=== PATIENT | female | born 1990 | race Caucasian/White ===

== ENCOUNTER 2016-08-20 00:30 | Emergency (ER) | payer OTHER ==
[~2016-08-20] VITALS: Ht 170.2 cm; Wt 77.1 kg
[~2016-08-20 00:30] MED LIST: AMOXICILLIN 50500 M1 PO; APAP500 PO; BENADRYL ALLERG25 MG PO; CIPROFLOXACIN500 M1 PO; DERMOPLAST SPRA56 ML; IBUPROFEN 800800 M1 PO; LANOLIN56 GM; NORCO 5-325 TA1 EACH PO; PEPCID40 MG PO; PREDNISONE 20 M20 MG PO; PRENATAL PO; PYRIDIUM200 MG PO; TUCKS1 EAC1 TP; ZOFRAN ODT4 MG PO
[2016-08-20] MEDS ORDERED: PREDNISONE 10 M10 M1 PO (01:44)
[2016-08-20 02:02] VITALS: BP 105/66
== END 2016-08-20 02:02 | disposition home or self-care (01) ==
LOC: ER 00:30
DX: L29.9 Pruritus, unspecified (principal); J45.909 Unspecified asthma, uncomplicated; G43.909 Migraine, unspecified, not intractable, without status migrainosus; Z90.89 Acquired absence of other organs; Z87.891 Personal history of nicotine dependence

== ENCOUNTER 2017-03-19 17:03 | Emergency (ER) | payer OTHER ==
[~2017-03-19] VITALS: Ht 170.2 cm; Wt 70.3 kg
[~2017-03-19 17:03] MED LIST changes: +PREDNISONE 10 M10 M1 PO
[2017-03-19 17:29] LABS: URINE BILIRUBIN NEGATIVE (Negative); URINE BLOOD NEGATIVE (Negative); URINE CLARITY CLEAR; URINE COLOR YELLOW; URINE GLUCOSE-RANDOM* NEGATIVE (Negative); URINE KETONES NEGATIVE (Negative); URINE LEUKOCYTES-REFLEX NEGATIVE (Negative); URINE NITRITE-REFLEX NEGATIVE (Negative); URINE PROTEIN (DIPSTICK) NEGATIVE (Negative); URINE UROBILINOGEN 0.2 E.U./dl (0.2-1.0)
[2017-03-19 17:41] LABS: ABSOLUTE NEUTROPHILS 11.7 thou/uL (1.4-8.2); BASOPHILS 0.5 % (0.0-2.0); EOSINOPHILS 0.7 % (0.0-3.0); HEMATOCRIT 42.2 % (37.0-47.0); LYMPHOCYTES 18.6 % (24.0-44.0); MCHC 33.1 g/dL (28.0-37.0); MCV 90.7 fL (80.0-100.0); MONOCYTES 5.8 % (1.0-8.0); PLATELET COUNT 171 thou/uL (150-400); POLYS 74.4 % (36.0-66.0); RBC 4.66 mil/uL (4.20-5.00); RDW 12.5 % (10.5-14.5); WBC 15.8 thou/uL (4.0-11.0)
[2017-03-19 18:05] LABS: CALCIUM 9.7 mg/dL (8.5-10.1); CREATININE 0.7 mg/dL (0.6-1.0); POTASSIUM 4.3 mmol/L (3.5-5.1)
[2017-03-19 18:11] LABS: ALBUMIN 4.5 g/dL (3.4-5.0); TOTAL BILIRUBIN 0.6 mg/dL (<0.1-1.0); TOTAL PROTEIN 7.9 g/dL (6.4-8.2)
[2017-03-19] MEDS ORDERED: NORCO 5-325 TA1 EACH PO (19:36)
[2017-03-19] MEDS ORDERED: ZOFRAN ODT4 MG PO (19:36)
== END 2017-03-19 20:03 | disposition home or self-care (01) ==
LOC: ER 17:03
PROVIDERS: Emergency Medicine; Physician Assistant
DX: N83.201 Unspecified ovarian cyst, right side (principal); J45.909 Unspecified asthma, uncomplicated; G43.909 Migraine, unspecified, not intractable, without status migrainosus; Z90.89 Acquired absence of other organs; Z87.891 Personal history of nicotine dependence

== ENCOUNTER 2017-04-21 17:55 | Emergency (ER) | payer OTHER ==
[~2017-04-21] VITALS: Ht 170.2 cm; Wt 68.0 kg
[2017-04-21] MEDS ORDERED: AUGMENTIN 875-1 EACH PO (19:17)
== END 2017-04-21 19:37 | disposition home or self-care (01) ==
LOC: ER 17:55
DX: J98.8 Other specified respiratory disorders (principal); J32.0 Chronic maxillary sinusitis; J45.909 Unspecified asthma, uncomplicated; G43.909 Migraine, unspecified, not intractable, without status migrainosus; F17.210 Nicotine dependence, cigarettes, uncomplicated

== ENCOUNTER 2017-10-29 13:00 | Emergency (ER) | payer OTHER ==
[~2017-10-29] VITALS: Ht 170.2 cm; Wt 77.1 kg
[~2017-10-29 13:00] MED LIST changes: +AUGMENTIN 875-1 EACH PO
[2017-10-29] MEDS ORDERED: NAPROSYN500 MG PO (14:45)
[2017-10-29] MEDS ORDERED: NORFLEX100 MG PO (14:45)
[2017-10-29] MEDS ORDERED: HYDROCODONE-AP1 EAC6 PO (14:46)
[2017-10-29 15:02] VITALS: BP 109/71
== END 2017-10-29 15:03 | disposition home or self-care (01) ==
LOC: ER 13:00
DX: S16.1XXA Strain of muscle, fascia and tendon at neck level, initial encounter (principal); S39.012A Strain of muscle, fascia and tendon of lower back, initial encounter; S20.219A Contusion of unspecified front wall of thorax, initial encounter; J45.909 Unspecified asthma, uncomplicated; G43.909 Migraine, unspecified, not intractable, without status migrainosus; F17.210 Nicotine dependence, cigarettes, uncomplicated; V89.2XXA Person injured in unspecified motor-vehicle accident, traffic, initial encounter; Y93.89 Activity, other specified; Y92.89 Other specified places as the place of occurrence of the external cause; Y99.8 Other external cause status

== ENCOUNTER 2017-12-09 09:38 | Emergency (ER) | payer OTHER ==
[~2017-12-09] VITALS: Ht 170.2 cm; Wt 81.7 kg
[~2017-12-09 09:38] MED LIST changes: +HYDROCODONE-AP1 EAC6 PO; +NAPROSYN500 MG PO; +NORFLEX100 MG PO
[2017-12-09 09:49] LABS: URINE BILIRUBIN NEGATIVE (Negative); URINE BLOOD 3+ (Negative); URINE CLARITY CLOUDY; URINE COLOR YELLOW; URINE GLUCOSE-RANDOM* NEGATIVE (Negative); URINE KETONES NEGATIVE (Negative); URINE PROTEIN (DIPSTICK) 2+ (Negative); URINE SPECIFIC GRAVITY 1.025 (1.005-1.035); URINE UROBILINOGEN 0.2 E.U./dl (0.2-1.0)
[2017-12-09 09:51] LABS: URINE LEUKOCYTES-REFLEX 2+ (Negative); URINE NITRITE-REFLEX POSITIVE (Negative)
[2017-12-09 09:58] LABS: SQUAMOUS 0-3 Few /LPF (0-3)
[2017-12-09 09:59] LABS: CASTS None Seen /LPF (None Seen); CRYSTALS None Seen /LPF (None Seen); URINE RBC 0-2 Rare /HPF (0-2); URINE WBC-REFLEX >25 Many /HPF (0-5)
[2017-12-09 10:33] LABS: BASOPHILS 0.3 % (0.0-2.0); EOSINOPHILS 0.5 % (0.0-3.0); HEMATOCRIT 41.5 % (37.0-47.0); HEMOGLOBIN 14.1 gm/dL (12.0-15.0); LYMPHOCYTES 9.6 % (24.0-44.0); MCH 31.4 pg (26.0-34.0); MCV 92.3 fL (80.0-100.0); MONOCYTES 0.8 % (1.0-8.0); PLATELET COUNT 134 thou/uL (150-400); POLYS 88.8 % (36.0-66.0); RDW 12.1 % (10.5-14.5)
[2017-12-09 10:39] LABS: CALCIUM 9.2 mg/dL (8.5-10.1); CREATININE 1.2 mg/dL (0.6-1.0); POTASSIUM 3.6 mmol/L (3.5-5.1)
[2017-12-09 10:45] LABS: ALBUMIN 3.9 g/dL (3.4-5.0); TOTAL BILIRUBIN 1.1 mg/dL (<0.1-1.0); TOTAL PROTEIN 7.8 g/dL (6.4-8.2)
[2017-12-09 12:30] VITALS: BP 103/53
[2017-12-09] MEDS ORDERED: NORCO 5-325 TA1 EACH PO (12:37)
[2017-12-09] MEDS ORDERED: BACTRIM DS TAB1 EACH PO (12:37)
[2017-12-09] MEDS ORDERED: ONDANSETRON HCL4 M2 PO (12:37)
== END 2017-12-09 12:45 | disposition home or self-care (01) ==
LOC: ER 09:38
PROVIDERS: Physician Assistant
DX: N12 Tubulo-interstitial nephritis, not specified as acute or chronic (principal); N17.9 Acute kidney failure, unspecified; F41.9 Anxiety disorder, unspecified; R11.2 Nausea with vomiting, unspecified; T16.1XXA Foreign body in right ear, initial encounter; X58.XXXA Exposure to other specified factors, initial encounter; Y93.89 Activity, other specified; Y92.89 Other specified places as the place of occurrence of the external cause; Y99.8 Other external cause status; J45.909 Unspecified asthma, uncomplicated; G43.909 Migraine, unspecified, not intractable, without status migrainosus; F17.210 Nicotine dependence, cigarettes, uncomplicated

== ENCOUNTER 2017-12-10 19:42 | Emergency (ER) | payer OTHER ==
[~2017-12-10] VITALS: Ht 170.2 cm; Wt 81.7 kg
[~2017-12-10 19:42] MED LIST changes: +BACTRIM DS TAB1 EACH PO; +ONDANSETRON HCL4 M2 PO
[2017-12-10 21:59] LABS: ABSOLUTE NEUTROPHILS 7.2 thou/uL (1.4-8.2); BASOPHILS 0.6 % (0.0-2.0); EOSINOPHILS 0.4 % (0.0-3.0); HEMATOCRIT 37.8 % (37.0-47.0); HEMOGLOBIN 12.8 gm/dL (12.0-15.0); LYMPHOCYTES 10.8 % (24.0-44.0); MCH 31.4 pg (26.0-34.0); MCHC 33.8 g/dL (28.0-37.0); MCV 92.7 fL (80.0-100.0); MONOCYTES 10.9 % (1.0-8.0); PLATELET COUNT 135 thou/uL (150-400); POLYS 77.3 % (36.0-66.0); RBC 4.08 mil/uL (4.20-5.00); RDW 12.1 % (10.5-14.5); WBC 9.3 thou/uL (4.0-11.0)
[2017-12-10 22:08] LABS: CREATININE 1.1 mg/dL (0.6-1.0); POTASSIUM 3.2 mmol/L (3.5-5.1)
[2017-12-10 22:14] LABS: ALBUMIN 3.7 g/dL (3.4-5.0); TOTAL BILIRUBIN 0.4 mg/dL (<0.1-1.0); TOTAL PROTEIN 7.7 g/dL (6.4-8.2)
[2017-12-10 22:30] LABS: URINE BILIRUBIN NEGATIVE (Negative); URINE BLOOD 3+ (Negative); URINE CLARITY CLEAR; URINE COLOR YELLOW; URINE GLUCOSE-RANDOM* NEGATIVE (Negative); URINE KETONES NEGATIVE (Negative); URINE NITRITE-REFLEX NEGATIVE (Negative); URINE PROTEIN (DIPSTICK) 1+ (Negative)
[2017-12-10 22:31] LABS: URINE LEUKOCYTES-REFLEX TRACE (Negative)
[2017-12-10 22:39] LABS: SQUAMOUS 0-3 Few /LPF (0-3); URINE RBC >20 Many /HPF (0-2)
[2017-12-10 22:40] LABS: BACTERIA-REFLEX 1-9 Few /HPF (None Seen); CASTS None Seen /LPF (None Seen); CRYSTALS None Seen /LPF (None Seen); URINE WBC-REFLEX 0-5 Rare /HPF (0-5)
[2017-12-11] MEDS ORDERED: ULTRAM 50MG TAB50 MG PO (00:25)
[2017-12-11] MEDS ORDERED: NAPROSYN500 MG PO (00:25)
[2017-12-11 01:23] VITALS: BP 123/64
== END 2017-12-11 01:28 | disposition home or self-care (01) ==
LOC: ER 19:42
PROVIDERS: Physician Assistant
DX: N83.202 Unspecified ovarian cyst, left side (principal); N12 Tubulo-interstitial nephritis, not specified as acute or chronic; R11.2 Nausea with vomiting, unspecified; F17.210 Nicotine dependence, cigarettes, uncomplicated; J45.909 Unspecified asthma, uncomplicated; G43.909 Migraine, unspecified, not intractable, without status migrainosus; Z90.89 Acquired absence of other organs

== ENCOUNTER 2018-03-13 11:05 | Emergency (ER) | payer OTHER ==
[~2018-03-13] VITALS: Ht 170.2 cm; Wt 77.1 kg
[~2018-03-13 11:05] MED LIST changes: +ULTRAM 50MG TAB50 MG PO
[2018-03-13 12:07] VITALS: BP 123/66
== END 2018-03-13 12:08 | disposition home or self-care (01) ==
LOC: ER 11:05
DX: M25.522 Pain in left elbow (principal); F17.210 Nicotine dependence, cigarettes, uncomplicated; J45.909 Unspecified asthma, uncomplicated; G43.909 Migraine, unspecified, not intractable, without status migrainosus; Z90.89 Acquired absence of other organs; W00.1XXA Fall from stairs and steps due to ice and snow, initial encounter; Y93.89 Activity, other specified; Y92.89 Other specified places as the place of occurrence of the external cause; Y99.8 Other external cause status

== ENCOUNTER 2019-08-06 10:23 | Emergency (ER) | payer OTHER ==
[~2019-08-06] VITALS: Ht 167.6 cm; Wt 95.3 kg
[2019-08-06 12:15] VITALS: BP 102/53
== END 2019-08-06 12:16 | disposition home or self-care (01) ==
LOC: ER 10:23
DX: M25.531 Pain in right wrist (principal); M79.631 Pain in right forearm; F17.210 Nicotine dependence, cigarettes, uncomplicated; G43.909 Migraine, unspecified, not intractable, without status migrainosus; J45.909 Unspecified asthma, uncomplicated; Z90.49 Acquired absence of other specified parts of digestive tract; W18.30XA Fall on same level, unspecified, initial encounter; Y93.89 Activity, other specified; Y92.89 Other specified places as the place of occurrence of the external cause; Y99.9 Unspecified external cause status

== ENCOUNTER 2020-09-26 11:13 | Emergency (ER) | payer OTHER ==
[~2020-09-26] VITALS: Ht 170.2 cm; Wt 81.7 kg
[2020-09-26 13:49] LABS: ABSOLUTE NEUTROPHILS 11.6 thou/uL (1.4-8.2); BASOPHILS 0.2 % (0.0-2.0); EOSINOPHILS 0.1 % (0.0-3.0); HEMATOCRIT 41.7 % (37.0-47.0); HEMOGLOBIN 13.8 gm/dL (12.0-15.0); LYMPHOCYTES 5.7 % (24.0-44.0); MCH 30.6 pg (26.0-34.0); MCHC 32.9 g/dL (28.0-37.0); MCV 92.9 fL (80.0-100.0); MONOCYTES 6.5 % (1.0-8.0); PLATELET COUNT 139 thou/uL (150-400); POLYS 87.5 % (36.0-66.0); RBC 4.49 mil/uL (4.20-5.00); RDW 12.8 % (10.5-14.5); WBC 13.2 thou/uL (4.0-11.0)
[2020-09-26 14:06] LABS: CREATININE 0.8 mg/dL (0.6-1.0); POTASSIUM 4.4 mmol/L (3.5-5.1)
[2020-09-26] MEDS ORDERED: HYDROCODON-ACE1 EAC7 PO (14:06)
[2020-09-26] MEDS ORDERED: AMOXICILLIN500 M1 PO (14:06)
[2020-09-26] MEDS ORDERED: CIPRO HC OTIC S10 ML OTIC (14:06)
[2020-09-26 14:42] VITALS: BP 112/68
[2020-09-26 15:15] LABS: URINE BILIRUBIN NEGATIVE (Negative); URINE BLOOD TRACE (Negative); URINE CLARITY CLEAR; URINE COLOR YELLOW; URINE GLUCOSE-RANDOM* NEGATIVE (Negative); URINE KETONES NEGATIVE (Negative); URINE LEUKOCYTES-REFLEX NEGATIVE (Negative); URINE NITRITE-REFLEX NEGATIVE (Negative); URINE PROTEIN (DIPSTICK) NEGATIVE (Negative); URINE SPECIFIC GRAVITY 1.025 (1.005-1.035); URINE UROBILINOGEN 0.2 E.U./dl (0.2-1.0)
== END 2020-09-26 14:42 | disposition home or self-care (01) ==
LOC: ER 11:13
PROVIDERS: Nurse Practitioner
DX: H60.91 Unspecified otitis externa, right ear (principal); Z20.822 Contact with and (suspected) exposure to COVID-19; J45.909 Unspecified asthma, uncomplicated; G43.909 Migraine, unspecified, not intractable, without status migrainosus; F17.210 Nicotine dependence, cigarettes, uncomplicated; Z90.89 Acquired absence of other organs